=== PATIENT | male | born 1950 | race Caucasian/White ===

== ENCOUNTER 2024-03-03 09:35 | Outpatient (AMB) | payer MEDICARE, BC, SELFPAY ==
--- NOTE | 2024-03-03 10:14 | HO.SPINEOV ---
Intake Intake Visit Reasons: back pain Intake Note: Mr. Little is here today c/o back pain that radiates to both legs. Non Destructive Evaluation Specialist Required: No Assessment & Plan Assessment & Plan (1) Femoral neuropathy of right lower extremity: Code(s): G57.21 - Lesion of femoral nerve, right lower limb Plan Dear dear colleague Thank you for referring Carson Little to the office today with a chief complaint of right leg discomfort and numbness. HPI: This 73-year-old male developed acute severe pain in his right thigh and rudolph in March 2023 that lasted for several days. In May of 2023 the symptoms returned and he had to be transferred to the emergency room. Currently, the pain has mostly subsided but he has residual numbness in his rudolph. He also noted that he put more weight on his left leg nowadays. Cortisone injections provided no relief PMH: Hypertension, hypercholesterolemia, COPD, depression Medications: Atorvastatin, atenolol, Percocet, Advair, Cymbalta, meclizine Allergies: NKDA Social history: . Nonsmoker Physical Exam: Pleasant male patient on inspection there is mild atrophy of the quadriceps on the right side. There is decreased sensation of his right rudolph. Straight leg raise is negative. No motor weakness. Absent reflexes. Radiological Studies: MRI done at [facility] on 12/29/2023 shows no nerve compression or central stenosis. Impression/Plan: This patient developed an acute neuropathy with residual numbness. Differential diagnosis is an acute femoral nerve neuropathy or L4 radiculopathy. The MRI shows no nerve compression. Therefore there is no role for surgery. I would like to refer for an EMG to confirm the diagnosis. He will call for the results. Thank you for allowing me to participate in your patients care. total time spent was 45 minutes in counseling ,coordination of plan, personal review of imaging, and subsequent plan Aris Lynn MD, PhD Spine Fellowship Trained Neurosurgeon Director, [facility] Orders: Orders NE nerve conduction velocity Today G57.21 - Lesion of femoral nerve, right lower limb Coding Level of Care Code New Pt Level 4 (03274) Diagnoses Femoral neuropathy of right lower extremity G57.21
== END 2024-03-03 11:41 | disposition home or self-care (01) ==
PROVIDERS: PCP Internal Medicine; Visit Provider Neurological Surgery
DX: G57.21 Lesion of femoral nerve, right lower limb (principal)
CPT/HCPCS: 99204

== ENCOUNTER → 2024-03-03 09:35 | Outpatient (BNVA) | payer MEDICARE, BC, SELFPAY | PROVIDERS: PCP Internal Medicine; Visit Provider Neurological Surgery | DX: G57.21 Lesion of femoral nerve, right lower limb (principal) | CPT/HCPCS: 99202 ==

== ENCOUNTER 2024-03-10 14:34 | Outpatient (REF) | payer MEDICARE, BC, SELFPAY ==
--- NOTE | 2024-03-10 14:40 | EMG_ITS ---
Chief complaint: Right leg pain that started May 2023. Pain occurred with numbness. Patient describes severe numbness from right knee all the way to dorsal foot. Milder numbness on right thigh. He has had injections done by Dr. Solis. MRI has been done but not available for my review. Reason for referral: Evaluate for femoral neuropathy versus lumbar radiculopathy Referred by: Dr. Lynn Procedure done: Right lower extremity NCS/EMG Precautions and/or limitations: None The limb temperature was monitored continuously and remained between 32-36 degrees C during the performance of the NCS. Nerve Conduction Studies Anti Sensory Summary Table ?Stim Site NR Onset (ms) Norm Onset (ms) Peak (ms) Norm Peak (ms) O-P Amp (?V) Norm O-P Amp Site1 Site2 Delta-0 (ms) Dist (cm) Nehemiah (m/s) Norm Nehemiah (m/s) Right Saphenous Anti Sensory (Ant Med Mall) 14cm ? 0.9 1.7 <4.4 2.3 >2 14cm Ant Med Mall 0.9 0.0 Right Sural Anti Sensory (Lat Mall) Calf ? 0.9 1.9 <4.0 10.8 >5.0 Calf Lat Mall 0.9 14.0 156 Motor Summary Table ?Stim Site NR Onset (ms) Norm Onset (ms) O-P Amp (mV) Norm O-P Amp iAmp (mV) Amp (1st) (%) Site1 Site2 Delta-0 (ms) Dist (cm) Nehemiah (m/s) Norm Nehemiah (m/s) Right Peroneal Motor (Ext Dig Brev) Ankle ? 4.7 <4.0 2.3 >2.5 2.8 100.0 Ankle Ext Dig Brev 4.7 0.0 B Fib ? 12.9 2.2 3.0 95.7 B Fib Ankle 8.2 34.0 41 >40 Poplt ? 13.6 2.2 2.8 95.7 Poplt B Fib 0.7 7.0 100 >40 Right Tibial Motor (Abd Wood Brev) Ankle ? 5.3 <5 7.4 >2.5 9.4 100.0 Ankle Abd Wood Brev 5.3 0.0 Knee ? 17.0 4.7 6.0 63.5 Knee Ankle 11.7 44.0 38 >40 Right femoral nerve tested/attempted, technically difficult to obtain. EMG ?Side Muscle Nerve Root Ins Act Fibs Psw Amp Dur Poly Recrt Int Pat Comment Right AbdHallucis MedPlantar S1-2 Nml Nml Nml Nml Nml 0 Nml Complete Right AntTibialis Dp Br Peron L4-5 Nml Nml Nml Nml Nml 0 Nml Complete Right PostTibialis Tibial L5, S1 Nml Nml Nml Nml Nml 0 Nml Complete Right MedGastroc Tibial S1-2 Nml Nml Nml Nml Nml 0 Nml Complete Right VastusMed Femoral L2-4 Nml Nml Nml Nml Nml 0 Nml Complete Right VastusLat Femoral L2-4 Nml Nml Nml Nml Nml 0 Nml Complete Right RectFemoris Femoral L2-4 Nml Nml Nml Nml Nml 0 Nml Complete Right Add Rd Obturator, Sciat L2-4 Nml Nml Nml Nml Nml 0 Nml Complete Paraspinal EMG ?Side Muscle Nerve Root Ins Act Fibs Psw Comment Right Lumbar Upper Rami Nml Nml Nml Right Lumbar Mid Rami Nml Nml Nml Right Lumbar Lower Rami Nml Nml Nml FINDINGS: Right peroneal nerve showed prolonged distal latency, small amplitude and normal conduction velocity. Right tibial nerve showed prolonged distal latency, normal amplitude and slow conduction velocity. All other nerves tested, including right saphenous and sural nerves, were within normal. Note that right femoral motor nerve is difficult technically. An absent response does not indicate abnormality. Note that the right saphenous was within normal. And no denervation seen on needle EMG of muscles innervated by femoral nerve. Concentric needle EMG was performed in selected muscles of the right lower extremity and lumbar paraspinals. Study did not reveal signs of electric abnormalities as shown in the table below. IMPRESSION: 1. This is an abnormal study. 2. There are electrodiagnostic findings suggestive of right L5/S1 radiculopathy 3. There is no electrodiagnostic evidence for femoral neuropathy, sciatic neuropathy or lumbar plexopathy, given normal saphenous and sural SNAPS. 4. Also given normal sural SNAP, no evidence for distal/peripheral neuropathy seen. Thank you for your kind referral. Miladys Donovan MD, SHAWN Board Certified, [place] Board [employer] and [employer] (ABPMR) Board Certified, [place] Board [employer] Electro[employer] (ABEM) CODIN [id number] SARAH
== END 2024-03-10 14:35 | disposition home or self-care (01) ==
LOC: HO.NEURO 14:34
PROVIDERS: PCP Internal Medicine; Visit Provider Neurological Surgery
DX: G57.21 Lesion of femoral nerve, right lower limb (principal)
CPT/HCPCS: 95886; 95910

== ENCOUNTER → 2024-03-10 14:40 | Outpatient (BNV) | payer MEDICARE, BC, SELFPAY | PROVIDERS: PCP Internal Medicine; Visit Provider Physical Medicine & Rehabilitation | DX: M54.16 Radiculopathy, lumbar region (principal) | CPT/HCPCS: 95886; 95908 ==

== ENCOUNTER 2025-06-30 09:15 | Outpatient (AMB) | payer MEDICARE, BC, SELFPAY ==
--- NOTE | 2025-06-30 09:16 | A.OFFVIS_ITS ---
Vital Signs 06/30/25 09:18 Weight 172 lb BP 130/60 Blood Pressure Location Rt brachial Position Sitting Pulse 53 Pulse Source Pulse Oximeter Pulse Oximetry (%) 97 Oxygen Delivery Method Room Air Intake Visit Reasons: E-POST DOCTORAL RESEARCHER: Tremors Intake Note: NPV referred by PCP Kathy Prado for Tremors Hedis Review Nurse Required: No Accompanied by: Self / Same As Patient Allergies No Known Allergies Allergy (Verified 06/30/25 09:19) Medication List - Last Reconciled 06/30/25 by Bhakti Freeman MD albuterol sulfate 90 mcg/actuation (Ventolin HFA) 2 puffs inhalation Q4-6H PRN atenolol 25 mg PO DAILY atorvastatin (Lipitor) 40 mg PO DAILY dicyclomine 10 mg PO BID duloxetine 30 mg PO DAILY fluticasone propion-salmeterol 250-50 mcg/dose 1 inh inhalation BID gabapentin 300 mg PO BEDTIME ipratropium-albuterol 20-100 mcg/actuation 1 puff inhalation QID meclizine 25 mg PO TID nicotine 1 patch transdermal Q24H oxycodone-acetaminophen 5-325 mg (Percocet) 1 tab PO TID PRN propranolol 10 mg PO BID PRN timolol 0.5% 1 drp ophthalmic (eye) BID zolpidem 10 mg PO BEDTIME HPI Comments Details: 74y/o Right handed male comes for evaluation of tremors. He started noticing it 3 years ago and the tremors are more in his Right hand with action. He has trouble writing, dressing, shaving, holding a coffee cup, typing ,eating ,drinking and it is worse in the later part of day. No fh/o tremors No head injury He has vertigo and has been taking meclizine No head or voice or LE tremors. [facility] Medical History Tendinopathy of left rotator cuff Prediabetes IBS (irritable bowel syndrome) Insomnia Hypertension Hyperlipemia Erectile dysfunction Dyspnea Calcific tendinitis of left shoulder Aortic stenosis Anxiety Allergic rhinitis Physical Exam Vital Signs: Last Vital Signs Pulse 53 06/30/25 09:18 BP 130/60 06/30/25 09:18 Pulse Ox 97 06/30/25 09:18 Oxygen Delivery Method Room Air 06/30/25 09:18 Const Orientation/consciousness: patient oriented x3 Eyes Pupils: Equal, round and reactive pupils present Neuro Other: Right UE postural and action tremors Cog wheel rigidity 1 + right hand Left UE - mild tremors FFM and foot taps mild decreased peyman Gait- does not swing his right UE General: patient oriented x3 and moves all extremities Cranial nerves: Yes Facial sensation intact/muscles of mastication intact, Yes Equal, round and reactive pupils present, Yes Bilaterally intact EOM present, Yes Nystagmus not present, Yes Normal facial strength present, Yes Midline tongue present, Yes Symmetric palate elevation present and Yes Ability to bilaterally elevate shoulders present Cognition (Neuro): normal cognition Motor exam (neuro): 5/5 motor strength present throughout Deep tendon reflexes (DTR's): Right triceps reflex intensity grade: 1+, Left triceps reflex intensity grade: 1+, Rt Biceps (C5, C6): 1+, Left biceps reflex intensity grade: 1+, Right brachioradialis reflex intensity grade: 1+, Left brachioradialis reflex intensity grade: 1+, Right patellar reflex intensity grade: 0 and Left patellar reflex intensity grade: 1+ Coordination: [id number] test normal Assessment & Plan Assessment & Plan (1) Coarse tremors: Comment: senile tremors- has some parkinsonian fetaures - cogwheel rigidity and decreased arm swing Code(s): G25.2 - Other specified forms of tremor Category: Medical Plan Will monitor for parkinsons I will trial him on gabapentin 300mg qhs - for tremors , sleep . Taper zolpidem Propranalol 10mg bid as needed MRI brain Orders: Orders MR head/brain wo con Today G25.2 - Other specified forms of tremor Medications: New gabapentin 300 mg PO BEDTIME 30 caps 6RF propranolol 10 mg PO BID PRN 60 tabs 3RF tremors Coding Level of Care Code New Pt Level 4 (15370) Diagnoses Coarse tremors G25.2 BFADL Questionnaire: Cut food with a knife and fork: 3 - Able to do activity with a lot of effort, Use a spoon to drink soup: 3 - Able to do activity with a lot of effort, Hold a cup of tea: 3 - Able to do activity with a lot of effort, Pour milk from a bottle or carton: 3 - Able to do activity with a lot of effort, Wash and dry dishes: 3 - Able to do activity with a lot of effort, [place] your teeth: 2 - Able to do activity with a little effort, Use a handkerchief to blow your nose: 2 - Able to do activity with a little effort, Use a bath: 2 - Able to do activity with a little effort, Use the lavoratory: 3 - Able to do activity with a lot of effort, Wash your face and hands: 3 - Able to do activity with a lot of effort, Tie your shoelaces: 2 - Able to do activity with a little effort, Do up buttons: 2 - Able to do activity with a little effort, Do up a zip: 2 - Able to do activity with a little effort, Write a letter: 4 - Cannot do the activity by yourself, Put a letter in an envelope: 3 - Able to do activity with a lot of effort, Hold and read a newspaper: 3 - Able to do activity with a lot of effort, Dial a telephone: 3 - Able to do activity with a lot of effort, Make yourself understood on a telephone: 1 - Able to do activity without difficulty, Watch television: 1 - Able to do activity without difficulty, set up operator tool your change in a shop: 1 - Able to do activity without difficulty, Inset an electrical plug into a socket: 2 - Able to do activity with a little effort, Unlock your front door with a oropeza: 2 - Able to do activity with a little effort, Walk up and down stairs: 4 - Cannot do the activity by yourself, Get up out of an armchair: 3 - Able to do activity with a lot of effort and Carry a full shopping ba - Able to do activity with a little effort
[2025-06-30 09:18] VITALS: BP 130/60; PULSE 53; O2SAT 97
--- OUTSIDE RECORDS SUMMARY | 2025-06-30 09:32 | XMS_ITS | Clinical Summary ---
Author Organization [facility] [place] Address [address] [place] [address] Care Team Providers Care Lab Manager Name Role Phone Kathy Prado MD Primary Care Provider [phone] Allergies No known active allergies Medications timolol (TIMOPTIC) 0.5 % ophthalmic solution Administer 1 drop into both eyes 2 (two) times a day. 09/10/20 23 Active nicotine (NICODERM CQ) 14 mg/[address] 1 patch on the skin 1 (one) time each day at the same time. 10/13/20 23 Active fluticasone-sa lmeterol (ADVAIR DISKUS) 250-50 mcg/dose diskus inhaler Inhale 1 puff by mouth 2 (two) times a day. wixela 08/19/20 23 Active fluticasone-sa lmeterol (ADVAIR DISKUS) 250-50 mcg/dose diskus inhaler Inhale 1 puff by mouth 2 (two) times a day. 08/19/20 22 Active ipratropium-al buteroL (Combivent Respimat) 20-100 mcg/actuation inhaler Inhale 1 puff by mouth 4 (four) times a day. 3 g 4 10/15/20 24 025 Active nicotine (NICODERM CQ) 14 mg/24 hrIndications: Tobacco dependency 14 mg x 8 weeks, 7 mg x 4 weeks 60 patch 1 10/15/20 24 Active atenoloL (TENORMIN) 25 mg tablet TAKE 1 AND 1/2 TABLETS BY MOUTH EVERY DAY 135 tablet 1 01/06/20 25 Active meclizine (ANTIVERT) 25 mg tablet TAKE 1 TABLET BY MOUTH TWICE A DAY 60 tablet 1 05/11/20 25 Active oxyCODONE-acet aminophen (PERCOCET) 5-325 mg per tabletIndicati ons:Calcific tendinitis of left shoulder Take 1 tablet by mouth every 6 (six) hours if needed for severe pain. Take 1 Tablet by mouth every 6 hours as needed for Pain for up to 28 days. - Oral Max Daily Amount: 4 tablets 112 tablet 06/06/20 25 Active oxyCODONE-acet aminophen (PERCOCET) 5-325 mg per tabletIndicati ons:Calcific tendinitis of left shoulder Take 1 tablet by mouth every 6 (six) hours if needed for severe pain. Take 1 Tablet by mouth every 6 hours as needed for Pain for up to 28 days. - Oral Max Daily Amount: 4 tablets 112 tablet 06/06/20 25 Active DULoxetine (CYMBALTA) [address] capsule TAKE 1 CAPSULE BY MOUTH EVERY DAY 90 capsule 06/13/20 25 Active dicyclomine (BENTYL) 10 mg capsule TAKE 1 CAPSULE BY MOUTH TWICE A DAY 180 capsule 06/13/20 25 Active atorvastatin (LIPITOR) 40 mg tablet TAKE 1 TABLET BY MOUTH EVERY DAY 90 tablet 06/23/20 25 Active albuterol HFA (PROAIR HFA ; PROVENTIL HFA ; VENTOLIN HFA) 90 mcg/actuation inhalerIndicat ions:Dizziness and giddiness,Shor tness of breath INHALE 2 PUFFS BY MOUTH EVERY 4 (FOUR) HOURS IF NEEDED FOR WHEEZING. 18 each 06/27/20 25 026 Active zolpidem (AMBIEN) 10 mg tablet Take 1 tablet (10 mg total) by mouth at bedtime as needed for sleep. Max Daily Amount: 10 mg 30 tablet 06/28/20 25 Active zolpidem (AMBIEN) 10 mg tablet Take 1 tablet (10 mg total) by mouth at bedtime as needed for sleep. Max Daily Amount: 10 mg 30 tablet 06/28/20 25 Active dicyclomine (BENTYL) 10 mg capsule TAKE 1 CAPSULE BY MOUTH TWICE A DAY 180 capsule 12/22/19 25 025 Discontinued DULoxetine (CYMBALTA) [address] capsule TAKE 1 CAPSULE BY MOUTH EVERY DAY 90 capsule 1 12/22/19 25 025 Discontinued atorvastatin (LIPITOR) 40 mg tablet TAKE 1 TABLET BY MOUTH EVERY DAY 90 tablet 1 12/27/19 25 025 Discontinued albuterol HFA (PROAIR HFA ; PROVENTIL HFA ; VENTOLIN HFA) 90 mcg/actuation inhalerIndicat ions:Dizziness and giddiness,Shor tness of breath Inhale 2 puffs by mouth every 4 (four) hours if needed for wheezing. 1 each 3 12/27/19 025 Discontinued zolpidem (AMBIEN) 10 mg tablet Take 1 tablet (10 mg total) by mouth at bedtime as needed for sleep. Max Daily Amount: 10 mg 30 tablet 3 03/08/20 025 Discontinued(Re order) oxyCODONE-acet aminophen (PERCOCET) 5-325 mg per tabletIndicati ons:Calcific tendinitis of left shoulder Take 1 tablet by mouth every 6 (six) hours if needed for severe pain. Take 1 Tablet by mouth every 6 hours as needed for Pain for up to 28 days. - Oral Max Daily Amount: 4 tablets 112 tablet 05/10/20 025 Discontinued(Re order) Hospital, Clinic, or Other Facility Administered Medication Ordered Dose Route Frequency Start Date End Date Status nicotine (NICODERM CQ) 14 mg/24 hr patch 1 patchIndications:Tobacco abuse 1 patch TD Daily 10/15/2024 Active Active Problems Problem Noted Date Diagnosed Date Aortic stenosis 10/21/2022 Anxiety 02/19/2022 Dyspnea 02/19/2022 Calcific tendinitis of left shoulder 04/18/2020 Tendinopathy of left rotator cuff 04/18/2020 Hypertension 01/15/2019 Assessment & Plan (11/09/2024 1:28 PM EST): Orders: Hemoglobin A1c; Future Lipid panel with reflex to direct LDL; Future Hyperlipidemia 06/09/2018 Assessment & Plan (11/09/2024 1:28 PM EST): Orders: Hemoglobin A1c; Future Lipid panel with reflex to direct LDL; Future Insomnia 01/14/2018 Prediabetes 11/22/2016 Assessment & Plan (11/09/2024 1:28 PM EST): Orders: Hemoglobin A1c; Future Lipid panel with reflex to direct LDL; Future ED (erectile dysfunction) 11/21/2015 Allergic rhinitis 07/21/2014 Irritable bowel syndrome 02/01/2014 Encounters Date Type Department Care Team Description 05/10/2025 1:15 PM EDT Office Visit Internal Medicine [facility] [address] [facility] [address] [place] [phone] Kathy Prado MD Primary hypertension (Primary Dx); Mixed hyperlipidemia; Prediabetes; Bruising; Screening for colorectal cancer 05/09/2025 Telephone Internal Medicine [facility] [address] [facility] [address] [place] [address] Angel Herrera MA Appointment Reminder 04/15/2025 2:30 PM EDT Office Visit Pulmonolgy [facility] [address] [facility] [address] [place] [phone] Nichole Gutierrez MD Chronic obstructive pulmonary disease, unspecified COPD type (CMS/HCC V24, CMS/HCC V28) (Primary Dx) from Last 3 Months Immunizations Name Administration Dates Next Due Influenza Quadravalent, 0.5ml (Fluad) 65yo and o lder 09/26/2023,09/23/2022 Influenza trivalent, 0.5mL ( Fluzone High-dose) 65yo and older 09/12/2024,09/12/2019 Influenza trivalent, with pr eservative (Fluzone; Afluria) 6mo and older 09/21/2020 Moderna (age 6mo & older) Bi valent, COVID-19, 0.5 mL or 0.25 mL dosage 11/28/2022 Moderna SARS-CoV-2 COVID-19, mRNA, LNP-S, preservative free 11/28/2022 Pneumococcal conjugate 13 va lent (Prevnar 13, PCV13) 2mo and older 08/21/2016 Pneumococcal polysaccharide 23 valent (Pneumovax 23) 2yo and older 10/31/2017 Tdap Tetanus diptheria acell ular pertussis (Boostrix; Adacel) 7yo and older 05/09/2025,06/14/2014 Surgical History Surgery Date Site/Laterality Comments HERNIA REPAIR Left PROCEDURE: REPAIR INGUINAL HERNIA Medical History Medical History Date Comments Allergic rhinitis 07/21/2014 DX:Allergic rh initis ED (erectile dysfunction) 11/21/2015 DX:ED (erectile dysfunction) Hyperlipidemia 06/09/2018 DX:Hyperlipidemi a Insomnia 01/14/2018 DX:Insomnia Irritable bowel syndrome 02/01/2014 DX:Irri table bowel syndrome Prediabetes 11/22/2016 DX:Prediabetes Hypertension 01/15/2019 DX:Hypertension Social History Tobacco Use Types Packs/Day Years Used Date Smoking Tobacco: Every Day Smokeless Tobacco: Never Alcohol Use Standard Drinks/Week Comments No 0 (1 standard drink = 0.6 oz pur e alcohol) Housing Instability Answer Date Recorde d Are you worried that in the next 2 months you may not have stable housing? No 11/02/2024 Food Access & Nutrition Answer Date Rec orded Do you have access to a vari ety of food including fruits and vegetables? Yes 11/02/2024 Access to Healthcare Answer Date Record ed Within the last 3 months, ho w many times did you visit the emergency department for your medical care? 0 11/02/2024 Health Literacy Answer Date Recorded How often do you need to hav e someone help you when you read instructions, pamphlets, or other written material from your doctor or pharmacy? Rarely 11/02/2024 Caregiver: How often do you need to have someone help you when you read instructions, pamphlets, or other written material from your doctor or pharmacy? Not on file 11/02/2024 Financial Risk Answer Date Recorded How hard is it for you to pa y for the very basics like food, housing, medical care, and air conditioning / heating? Not very hard 11/02/2024 Transportation Answer Date Recorded Has the lack of transportati on kept you from meetings, work, or from getting things needed for daily living? No Has the lack of transportati on kept you from medical appointments or from getting medications? No 11/02/2024 Social Isolation Answer Date Recorded How often do you feel lonely or isolated from th ose around you? Never 11/02/2024 Food Risk Answer Date Recorded Within the past 12 months we worried whether our food would run out before we got money to buy more. Never true 11/02/2024 Within the past 12 months th e food we bought just didn't last and we didn't have money to get more. Never true 11/02/2024 Dependent Care Answer Date Recorded Do you need help finding or paying for care for your loved ones. For example, child welfare counselor or elderly care for an older adult? No 11/02/2024 Education Answer Date Recorded Do you think completing more education or training, like finishing a GED, going to college, or learning a trade, would be helpful for you? No 11/02/2024 Employment and Income Answer Date Recor ded During the last four weeks, have you been actively looking for work? No 11/02/2024 Living Situation Answer Date Recorded What is your living situation? 1 01/03/2024 Sex and Gender Information Value Date Recorded Sex Assigned at Male 02/10/2025 5:56 PM EDT Legal Sex Male 11:52 AM EDT Gender Identity Male 02/10/2025 5:56 PM EDT Sexual Orientation Straight 02/10/2025 5: 56 PM EDT Obstetrics History Last Filed Vital Signs Vital Sign Reading Time Taken Comments Blood Pressure 126/72 05/10/2025 1:10 PM EDT Pulse 93 05/10/2025 1:10 PM EDT Temperature 36.3 C (97.3 F) 05/10/2025 1:10 PM EDT Respiratory Rate 14 04/15/2025 2:26 PM EDT Oxygen Saturation 95% 05/10/2025 1:10 PM EDT Inhaled Oxygen Concentration - - Weight 77.4 kg (170 lb 9.6 oz) 05/10/2025 1:10 P M EDT Height 177.8 cm (5' 10 ) 04/15/2025 2:26 PM EDT Body Mass Index 24.48 04/15/2025 2:26 PM EDT Plan of Treatment Upcoming Encounters Date Type Department Care Team (Late st Contact Info) Description 10/12/2025 1:15 PM EST Office Visit Internal Medicine - [place] [address] [facility] [address] [place] [address] Kathy Prado MD [address] [facility] [address] [place] [address] 10/17/2025 2:15 PM EST Office Visit Pulmonolgy - [place] [address] [facility] [address] [place] [phone] Nichole Gutierrez MD [address] [facility] [address] [place] [address] Health Maintenance Due Date Last Done Comments Zoster Vaccines (1 of 2) 2001 RSV Immunization Adult Patients (1 - Risk 60-74 years 1-dose series) 2011 Abdominal Aortic Aneurysm (AAA) Screen 03/16/2021 Hepatitis C Screening 03/16/2021 COVID-19 Vaccine ( season) 2024 11/14/2023, 11/28/2022, 11/28/2022, Additional history exists Influenza Vaccine (#1) 2025 , 09/26/2023, 09/23/2022, Additional history exists Social Influencers of Health Screening 11/02/2025 11/02/2024 Falls Risk Assessment 11/09/2025 11/09/2024 , 11/07/2023, 11/07/2023 Medicare Annual Wellness Visit 11/09/2025 11/09/2024 Hypertension/CHF/CAD Annual BMP Blood Test 05/10/2026 05/10/2025, 11/03/2024, 11/13/2023 Colorectal Cancer Screening: FIT-DNA (Cologuard) 06/15/2028 06/15/2025, 01/21/2022, 01/21/2022 Cholesterol Screening (Lipid Panel) 11/09/2029 11/09/2024, 11/13/2023, 11/13/2023 DTaP,Tdap,and Td Vaccines (3 - Td or Tdap) 05/09/2035 05/09/2025, 06/14/2014 Pneumococcal Vaccine: 50+ Years Completed 10/31/2017, 08/21/2016 Depression Screening Completed 05/04/2025, 11/07/20 23 HIB Vaccines Aged Out No longer eligi ble based on patient's age to complete this topic HPV Vaccines Aged Out No longer eligi ble based on patient's age to complete this topic Hepatitis A Vaccines Aged Out No long er eligible based on patient's age to complete this topic Hepatitis B Vaccines Aged Out No long er eligible based on patient's age to complete this topic IPV Vaccines Aged Out No longer eligi ble based on patient's age to complete this topic MMR Vaccines Aged Out No longer eligi ble based on patient's age to complete this topic Meningococcal ACWY Vaccine Aged Out N o longer eligible based on patient's age to complete this topic Meningococcal B Vaccine Aged Out No l onger eligible based on patient's age to complete this topic RSV Immunization Patients Under 20 months Aged Out No longer eligible based on patient's age to complete this topic Varicella Vaccines Aged Out No longer eligible based on patient's age to complete this topic Goals Goal Patient Goal Type Associated Problems Recent Progress Patient-Stated? Author PT LTGs General No Jin Reynoso, PT Note: Pt will report no dizziness/vertigo x1 week with full daily activity - met Pt will be independent with HEP - met Procedures Procedure Name Priority Date/Time Associated Diagnosis Comments LAB COLOGUARD COLON CANCER SCREEN Routine 06/15/2025 2:00 PM EDT Screening for colorectal cancer CBC WITH AUTO DIFFERENTIAL Routine 05/10/2025 1:50 PM EDT Primary hypertension Mixed hyperlipidemia Prediabetes [place] PROTHROMBIN TIME WITH INR Routine 05/10/2025 1:50 PM EDT Primary hypertension Mixed hyperlipidemia Prediabetes Bruising CBC AND DIFFERENTIAL Routine 05/10/2025 1:50 PM EDT Primary hypertension Mixed hyperlipidemia Prediabetes [place] HEMOGLOBIN A1C Routine 05/10/2025 1:50 PM EDT Primary hypertension Mixed hyperlipidemia Prediabetes [place] COMPREHENSIVE METABOLIC PANEL Routine 05/10/2025 1:50 PM EDT Primary hypertension Mixed hyperlipidemia Prediabetes [place] LIPID PANEL WITH REFLEX TO DIRECT LDL Routine 11/09/2024 1:28 PM EST Primary hypertension Mixed hyperlipidemia Prediabetes DEPRESSION SCREENING Routine 11/07/2023 FALLS RISK ASSESSMENT Routine 11/07/2023 from Last 3 Months or Most Recently Relevant to Health Maintenance Results * Cologuard?? colon cancer screening (06/15/2025 2:00 PM EDT) COLOGUARD Negative Negative [facility] Comment: The Cologuard Plus (TM) test was performed on this specimen. NEGATIVE TEST RESULT. A negative (normal) Cologuard Plus result means the patient has a [id number] chance of having colorectal cancer (CRC) or advanced precancer (polyps or lesions that could become cancer). Negative is the normal value (reference range) for this assay. Guidelines recommend screening again 3 years after a negative Cologuard Plus result. Continued screening increases the chance of finding CRC early or preventing it entirely. A clinical validation study showed the Cologuard Plus test is effective at ruling out CRC. Out of every 10,000 patients testing negative, approximately 2 will be falsely reassured that they do not have CRC, and out of every 100 patients testing negative, approximately 7 patients will be falsely reassured they do not have advanced precancer. TEST DESCRIPTION: The Cologuard Plus test is a multi-target stool DNA (mt-sDNA) test that analyzes DNA and hemoglobin biomarkers in stool. It uses a proprietary algorithm to qualitatively detect CRC and advanced precancer. It is FDA-approved and indicated for use in adults 45 years or older at average risk for CRC. A positive (abnormal) result should be followed by a colonoscopy. Patients with a negative (normal) result should screen again in 3 years. False positive and false negative results may occur. The USPSTF recommends the Cologuard test as a CRC screening option. Their modeling estimates that screening with the test every 3 years from ages 45-85 could prevent up to 73% of CRC and avoid up to 85% of CRC deaths. A 18,911-patient clinical trial found the Cologuard Plus test effectively detects CRC and precancer. The study found the test was 95% sensitive for CRC, 43% sensitive for advanced precancer, and had a 91% specificity (Cologuard Plus Clinician Brochure. [employer]. [place], [place].). Visit www.cologuardPick1p.com/[email or web address] for more test information, references, warnings, and precautions. Stool 06/15/2025 2:00 PM EDT 06/16/2025 12:45 PM EDT Kathy Prado MD LAB MOLECULAR DIAGNOSTICS [facility] Final Result [employer] [address] [place] [address] [facility] [address] [place] [address] * (ABNORMAL) CBC auto differential (05/10/2025 1:50 PM EDT) WBC 5.7 4.8 - 10.8 K/mcL LAB HEMETOLOGY METHOD 05/10/2025 6:33 PM EDT [facility] RBC 3.80(L) 4.50 - 5.50 M/mcL LAB HEMETOLOGY METHOD 05/10/2025 6:33 PM EDT [facility] Hemoglobin 13.1(L) 13.5 - 17.5 g/dL LAB HEMETOLOGY METHOD 05/10/2025 6:33 PM EDT [facility] Hematocrit 39.5(L) 42.0 - 54.0 % LAB HEMETOLOGY METHOD 05/10/2025 6:33 PM EDT [facility] MCV 104.8(H) 79.0 - 98.0 FL LAB HEMETOLOGY METHOD 05/10/2025 6:33 PM EDT [facility] MCH 34.7(H) 27.0 - 32.0 pcg LAB HEMETOLOGY METHOD 05/10/2025 6:33 PM EDT [facility] MCHC 33.2 32.0 - 37.0 g/dL LAB HEMETOLOGY METHOD 05/10/2025 6:33 PM [facility] RDW 12.6 11.0 - 15.0 % LAB HEMETOLOGY METHOD 05/10/2025 6:33 PM [facility] Platelets 277 130 - 400 K/mcL LAB HEMETOLOGY METHOD 05/10/2025 6:33 PM [facility] MPV 9.5 7.0 - 11.0 FL LAB HEMETOLOGY METHOD 05/10/2025 6:33 PM [facility] NRBC 0.0 <1.0 % LAB HEMETOLOGY METHOD 05/10/2025 6:33 PM [facility] NRBC Absolute 0.00 <0.10 K/mcL LAB HEMETOLOGY METHOD 05/10/2025 6:33 PM [facility] Neutrophils Relative 51.8 % LAB HEMETOLOGY METHOD 05/10/2025 6:33 PM [facility] Lymphocytes Relative 30.4 % LAB HEMETOLOGY METHOD 05/10/2025 6:33 PM [facility] Monocytes Relative 14.3 % LAB HEMETOLOGY METHOD 05/10/2025 6:33 PM [facility] Eosinophils Relative 2.4 % LAB HEMETOLOGY METHOD 05/10/2025 6:33 PM [facility] Basophils Relative 0.9 % LAB HEMETOLOGY METHOD 05/10/2025 6:33 PM [facility] Immature Granulocytes Relative 0.2 % LAB HEMETOLOGY METHOD 05/10/2025 6:33 PM [facility] Neutrophils Absolute 2.96 1.50 - 7.00 K/mcL LAB HEMETOLOGY METHOD 05/10/2025 6:33 PM [facility] Lymphocytes Absolute 1.74 1.00 - 5.00 K/mcL LAB HEMETOLOGY METHOD 05/10/2025 6:33 PM EDT [facility] Monocytes Absolute 0.82 0.20 - 1.00 K/mcL LAB HEMETOLOGY METHOD 05/10/2025 6:33 PM EDT [facility] Eosinophils Absolute 0.14 0.00 - 0.50 K/mcL LAB HEMETOLOGY METHOD 05/10/2025 6:33 PM EDT [facility] Basophils Absolute 0.05 0.00 - 0.20 K/mcL LAB HEMETOLOGY METHOD 05/10/2025 6:33 PM EDT [facility] Immature Granulocytes Absolute 0.01 0.00 - 0.03 K/mcL LAB HEMETOLOGY METHOD 05/10/2025 6:33 PM EDT [facility] Blood Venous blood specimen / Unknown Venipuncture / Unknown 05/10/2025 1:50 PM EDT 05/10/2025 1:50 PM EDT us Kathy Prado MD LAB BLOOD ORDERABLES Final Res ult [facility] [address] [place] [address], [place] [phone] * Prothrombin time with INR (05/10/2025 1:50 PM EDT) Protime 10.7 10.6 - 13.9 sec LAB COAGULATION METHOD 05/10/2025 6:28 PM EDT [facility] INR 0.9 LAB COAGULATION METHOD 05/10/2025 6:28 PM EDT [facility] Blood Venous blood specimen / Unknown Venipuncture / Unknown 05/10/2025 1:50 PM EDT 05/10/2025 1:50 PM EDT us Kathy Prado MD LAB BLOOD ORDERABLES Final Res ult [facility] [address] [place] [address], [place] [phone] * (ABNORMAL) Hemoglobin A1c (05/10/2025 1:50 PM EDT) [facility] Hemoglobin A1C 6.7(H) <6.5 % LAB CHEMISTRY METHOD 05/10/2025 10:14 PM EDT [facility] Mean Bld Glu Estim. 146 mg/dL LAB CHEMISTRY METHOD 05/10/2025 10:14 PM EDT [facility] Blood Venous blood specimen / Unknown Venipuncture / Unknown 05/10/2025 1:50 PM EDT 05/10/2025 1:50 PM EDT Kathy Prado MD LAB BLOOD ORDERABLES Final Res ult [facility] [address] [place] [address], [place] [phone] * Comprehensive metabolic panel (05/10/2025 1:50 PM EDT) [facility] Sodium 137 133 - 145 mmol/L LAB CHEMISTRY METHOD 05/10/2025 7:51 PM [facility] Potassium 4.3 3.5 - 5.5 mmol/L LAB CHEMISTRY METHOD 05/10/2025 7:51 PM [facility] Chloride 105 96 - 110 mmol/L LAB CHEMISTRY METHOD 05/10/2025 7:51 PM T [facility] CO2 27 21 - 32 mmol/L LAB CHEMISTRY METHOD 05/10/2025 7:51 PM [facility] Anion Gap 5 3 - 11 LAB CHEMISTRY METHOD 05/10/2025 7:51 PM [facility] Glucose 92 70 - 100 mg/dL LAB CHEMISTRY METHOD 05/10/2025 7:51 PM [facility] BUN 9 5 - 25 mg/dL LAB CHEMISTRY METHOD 05/10/2025 7:51 PM [facility] Creatinine 1.01 0.70 - 1.30 mg/dL LAB CHEMISTRY METHOD 05/10/2025 7:51 PM [facility] eGFR 79 >=60 mL/min/1. 73m2 LAB CHEMISTRY METHOD 05/10/2025 7:51 PM [facility] Comment:Calculation based on the Chronic Kidney Disease Epidemiology Collaboration (CKD-EPI) equation refit without adjustment for race. BUN/Creatinine Ratio 8.9 LAB CHEMISTRY METHOD 05/10/2025 7:51 PM [facility] Calcium 8.9 8.5 - 10.5 mg/dL LAB CHEMISTRY METHOD 05/10/2025 7:51 PM [facility] AST (SGOT) 29 10 - 42 unit/L LAB CHEMISTRY METHOD 05/10/2025 7:51 PM [facility] ALT (SGPT) 30 10 - 60 unit/L LAB CHEMISTRY METHOD 05/10/2025 7:51 PM [facility] Alkaline Phosphatase 79 42 - 121 unit/L LAB CHEMISTRY METHOD 05/10/2025 7:51 PM [facility] Total Protein 7.1 6.0 - 8.0 g/dL LAB CHEMISTRY METHOD 05/10/2025 7:51 PM [facility] Albumin 3.9 3.2 - 5.0 g/dL LAB CHEMISTRY METHOD 05/10/2025 7:51 PM [facility] Total Bilirubin 0.4 0.0 - 1.4 mg/dL LAB CHEMISTRY METHOD 05/10/2025 7:51 PM [facility] Blood Venous blood specimen / Unknown Venipuncture / Unknown 05/10/2025 1:50 PM EDT 05/10/2025 1:50 PM EDT us Kathy Prado MD LAB BLOOD ORDERABLES Final Res ult [facility] [address] [place] [address], [place] [phone] * Lipid panel with reflex to direct LDL (11/09/2024 1:28 PM EST) Cholesterol 194 0 - 200 mg/dL LAB CHEMISTRY METHOD 11/09/2024 7:44 PM EST [facility] Triglycerides 89 0 - 150 mg/dL LAB CHEMISTRY METHOD 11/09/2024 7:44 PM EST [facility] HDL 78 >=40 mg/dL LAB CHEMISTRY METHOD 11/09/2024 7:44 PM EST [facility] LDL Calculated 98 0 - 100 mg/dL LAB CHEMISTRY METHOD 11/09/2024 7:44 PM EST [facility] VLDL Cholesterol Markus 17.8 mg/dL LAB CHEMISTRY METHOD 11/09/2024 7:44 PM EST [facility] Non HDL Chol. (LDL+VLDL) 116 <145 mg/dL LAB CHEMISTRY METHOD 11/09/2024 7:44 PM EST [facility] Chol/HDL Ratio 2.5 0.0 - 4.4 LAB CHEMISTRY METHOD 11/09/2024 7:44 PM EST [facility] Blood Venous blood specimen / Unknown Venipuncture / Unknown 11/09/2024 1:28 PM EST 11/09/2024 1:28 PM EST us Kathy Prado MD LAB BLOOD ORDERABLES Final Res ult [facility] [address] [place] [address], [place] [phone] * Falls Risk Assessment (11/07/2023) Falls Risk Assessment abstracted us Historical Provider HEALTH MAINTENANCE Final Result * Depression Screening (11/07/2023) Pathologist [facility] Depression Screening abstracted us Historical Provider HEALTH MAINTENANCE Final Result from Last 3 Months or Most Recently Relevant to Health Maintenance Insurance MEDICARE [facility] Care Teams Lab Manager Relationship Specialty Start Date End Date Kathy Prado MD [address] [place] [address] [address] [place] [phone] PCP - General Internal Medicine 10/17/18
--- OUTSIDE RECORDS SUMMARY | 2025-06-30 09:32 | XMS_ITS ---
Author Name [facility] Organization Unknown Care Team Organization Name Specialty Phone Email Start Date End Da te [facility] LUCHO QUEZADA Primary Care 08/07/2023 07/19/20 [facility] Kathy Prado Primary Care 05/09/2023 07/19/20 24
== END 2025-06-30 10:03 | disposition home or self-care (01) ==
LOC: HO.HSMS 09:15
PROVIDERS: PCP Internal Medicine; Visit Provider Psychiatry & Neurology Neurology
DX: G25.2 Other specified forms of tremor (principal)
CPT/HCPCS: 99204

== ENCOUNTER → 2025-06-30 09:15 | Outpatient (BNVA) | payer MEDICARE, BC, SELFPAY | PROVIDERS: PCP Internal Medicine; Visit Provider Psychiatry & Neurology Neurology | DX: G25.2 Other specified forms of tremor (principal); Z79.899 Other long term (current) drug therapy | CPT/HCPCS: 99202 ==

== ENCOUNTER 2025-11-04 07:19 | Outpatient (AMB) | payer MEDICARE, BC, SELFPAY ==
--- OUTSIDE RECORDS SUMMARY | 2025-11-04 07:22 | XMS_ITS | Encounter Summary ---
Author Organization [facility] Address [address] [place] [address] Care Team Providers Care Assistant Manager Pt Name Role Phone Kathy Prado MD Primary Care Provider [phone] Reason for Visit * Reason Onset Date Comments Prior auth(lidocaine) 10/12/2025 Encounter Details Date Type Department Care Team (Late st Contact Info) Description 10/12/[address] [facility] [address] [place] [address] Kathy Prado MD [address] [place] [address] Social History Tobacco Use Types Packs/Day Years [...] ed Within the last 3 months, ho haley many times did you visit the emergency [...] for your loved ones. 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 [...] Date Recorded What is your living situation? Unrecognized valu e 11/02/2024 Sex and Gender Information Value Date Recorded Sex Assigned at Male 02/10/2025 5:56 PM EDT Legal Sex Male 11:52 AM EDT Gender Identity Male 02/10/2025 5:56 PM EDT Sexual Orientation Straight 02/10/2025 5: 56 PM EDT documented as of this encounter Progress Notes * Nabil Lam [place] - 10/13/2025 1:39 PM EST PA was denied * Raven Armstrong - 10/12/2025 2:45 PM EST [employer] called and stated that the lidocaine patches need a prior authorization. documented in this encounter Plan of Treatment Upcoming Encounters Date Type Department Care Team (Late st Contact Info) Description 11/07/2025 10:30 AM EST Office Visit Pulmonology - [place] [address] [phone] Nichole Gutierrez MD [address] [place] [phone] 02/13/2026 2:00 PM EDT Office Visit Internal Medicine - [place] [address] [phone] Kathy Prado MD [address] [place] [phone] documented as of this encounter Goals Goal Patient Goal Type Associated Problems Recent Progress Patient-Stated? Author PT LTGs General No Jin Reynoso, PT Note: Pt will report no dizziness/vertigo x1 week with full daily activity - met Pt will be independent with HEP - met documented as of this encounter Visit Diagnoses Not on filedocumented in this encounter Additional Health Concerns Assessment Noted Time PHQ-9 Depression Total Score: 0 10/12/20 25 1:28 PM EST documented as of this encounter Care Teams Assistant Manager Pt Relationship Specialty Start Date End Date Kathy Prado MD [address] [phone] PCP - General Internal Medicine 10/17/18 documented as of this encounter
--- OUTSIDE RECORDS SUMMARY | 2025-11-04 07:22 | XMS_ITS | Clinical Summary ---
Author Organization [facility] Address [address] [place] [address] Care Team Providers Care Folder Machine Adjuster Name Role Phone Kathy Prado MD Primary Care Provider [phone] Allergies No known active allergies Medications timolol (TIMOPTIC) 0.5 % ophthalmic solution Administer 1 drop into both eyes 2 (two) times a day. 09/10/20 23 Active fluticasone-salme terol (ADVAIR DISKUS) 250-50 mcg/dose diskus inhaler Inhale 1 puff by mouth 2 (two) times a day. wixela 08/19/20 23 Active fluticasone-salme terol (ADVAIR DISKUS) 250-50 mcg/dose diskus inhaler Inhale 1 puff by mouth 2 (two) times a day. 08/19/20 22 Active ipratropium-albut Amish (Combivent Respimat) 20-100 mcg/actuation inhaler Inhale 1 puff by mouth 4 (four) times a day. 3 g 4 10/15/20 24 Active nicotine (NICODERM CQ) 14 mg/24 hrIndications:Tob acco dependency 14 mg x 8 weeks, 7 mg x 4 weeks 60 patch 1 10/15/20 24 Active atenoloL (TENORMIN) 25 mg tablet TAKE 1 AND 1/2 TABLETS BY MOUTH EVERY DAY 135 tablet 1 01/06/20 25 Active DULoxetine (CYMBALTA) [address] capsule TAKE 1 CAPSULE BY MOUTH EVERY DAY 90 capsule 1 06/13/20 25 Active dicyclomine (BENTYL) 10 mg capsule TAKE 1 CAPSULE BY MOUTH TWICE A DAY 180 capsule 1 06/13/20 25 Active atorvastatin (LIPITOR) 40 mg tablet TAKE 1 TABLET BY MOUTH EVERY DAY 90 tablet 1 06/23/20 25 Active albuterol HFA (PROAIR HFA ; PROVENTIL HFA ; VENTOLIN HFA) 90 mcg/actuation inhalerIndication s:Dizziness and giddiness,Shortne ss of breath INHALE 2 PUFFS BY MOUTH EVERY 4 (FOUR) HOURS IF NEEDED FOR WHEEZING. 18 each 3 06/27/20 25 026 Active Wixela Inhub 250-50 mcg/dose diskus inhalerIndication s:Emphysema, unspecified (CMS/HCC V24, CMS/HCC V28) INHALE 1 PUFF INTO THE LUNGS 2 TIMES DAILY FOR 30 DAYS. 60 each 08/08/20 25 Active meclizine (ANTIVERT) 25 mg tablet TAKE 1 TABLET BY MOUTH TWICE A DAY 60 tablet 1 09/05/20 25 Active lidocaine (LIDODERM) 5 % patchIndications: Lumbar radiculopathy Apply 1 patch topically 1 (one) time each day. Apply to painful area 12 hours per day, remove for 12 hours. 30 each 10/12/20 25 026 Active oxyCODONE-acetami nophen (PERCOCET) 5-325 mg per tabletIndications :Calcific tendinitis of left shoulder,Lumbar radiculopathy Take 1 tablet by mouth 2 (two) times a day if needed for severe pain. Max Daily Amount: 2 tablets 14 tablet 10/12/20 25 Active oxyCODONE-acetami nophen (PERCOCET) 5-325 mg per tabletIndications :Calcific tendinitis of left shoulder Take 1 tablet by mouth every 6 (six) hours if needed for severe pain. Take 1 Tablet by mouth every 6 hours as needed for Pain for up to 28 days. - Oral Max Daily Amount: 4 tablets 112 tablet 10/18/20 25 Active zolpidem (AMBIEN) 10 mg tablet Take 1 tablet (10 mg total) by mouth at bedtime as needed for sleep. Max Daily Amount: 10 mg 30 tablet 3 10/31/20 25 Active nicotine (NICODERM CQ) 14 mg/[address] 1 patch on the skin 1 (one) time each day at the same time. 10/13/20 23 Discontin ued(Expir ed) zolpidem (AMBIEN) 10 mg tablet Take 1 tablet (10 mg total) by mouth at bedtime as needed for sleep. Max Daily Amount: 10 mg 30 tablet 3 06/28/20 25 025 Discontin ued(Reord er) zolpidem (AMBIEN) 10 mg tablet Take 1 tablet (10 mg total) by mouth at bedtime as needed for sleep. Max Daily Amount: 10 mg 30 tablet 3 06/28/20 25 025 Discontin ued(Expir ed) oxyCODONE-acetami nophen (PERCOCET) 5-325 mg per tabletIndications :Calcific tendinitis of left shoulder Take 1 tablet by mouth every 6 (six) hours if needed for severe pain. Take 1 Tablet by mouth every 6 hours as needed for Pain for up to 28 days. - Oral Max Daily Amount: 4 tablets 112 tablet 07/04/20 25 025 Discontin ued(Dupli nathalia order) oxyCODONE-acetami nophen (PERCOCET) 5-325 mg per tabletIndications :Calcific tendinitis of left shoulder Take 1 tablet by mouth every 6 (six) hours if needed for severe pain. Take 1 Tablet by mouth every 6 hours as needed for Pain for up to 28 days. - Oral Max Daily Amount: 4 tablets 112 tablet 09/19/20 25 025 Discontin ued(Reord er) oxyCODONE-acetami nophen (PERCOCET) 5-325 mg per tabletIndications :Calcific tendinitis of left shoulder,Lumbar radiculopathy Take 1 tablet by mouth 2 (two) times a day if needed for severe pain. Max Daily Amount: 2 tablets 14 tablet 10/12/20 25 025 Discontin ued(Reord er) Hospital, Clinic, or Other Facility Administered Medication Ordered Dose Route Frequency Start Date End Date Status nicotine (NICODERM CQ) 14 mg/24 hr patch 1 patchIndications:Tobacco abuse 1 patch TD Daily 10/15/2024 Active Active Problems Problem Noted Date Diagnosed Date Aortic stenosis 10/21/2022 Anxiety 02/19/2022 Dyspnea 02/19/2022 Calcific tendinitis of left shoulder 04/18/2020 Assessment & Plan (10/12/2025 7:09 PM EST): Orders: oxyCODONE-acetaminophen (PERCOCET) 5-325 mg per tablet; Take 1 tablet by mouth 2 (two) times a day if needed for severe pain. Max Daily Amount: 2 tablets Tendinopathy of left rotator cuff 04/18/2020 Hypertension 01/15/2019 Assessment & Plan (10/12/2025 7:09 PM EST): Assessment & Plan (11/09/2024 1:28 PM EST): Orders: Hemoglobin A1c; Future Lipid panel with reflex to direct LDL; Future Hyperlipidemia 06/09/2018 Assessment & Plan (10/12/2025 7:09 PM EST): Assessment & Plan (11/09/2024 1:28 PM EST): Orders: Hemoglobin A1c; Future Lipid panel with reflex to direct LDL; Future Insomnia 01/14/2018 Prediabetes 11/22/2016 Assessment & Plan (11/09/2024 1:28 PM EST): Orders: Hemoglobin A1c; Future Lipid panel with reflex to direct LDL; Future ED (erectile dysfunction) 11/21/2015 Allergic rhinitis 07/21/2014 Irritable bowel syndrome 02/01/2014 Encounters Date Type Department Care Team Description 10/12/2025 1:15 PM EST Office Visit Internal Medicine - [address] [phone] Kathy Prado MD Lumbar radiculopathy (Primary Dx); Calcific tendinitis of left shoulder; Primary hypertension; Mixed hyperlipidemia; Encounter for subsequent annual wellness visit (AWV) in Medicare patient 10/12/2025 Telephone Internal Medicine - [address] [phone] Kathy Prado MD from Last 3 Months Immunizations Immunization Administration Dates Next Due Influenza Quadravalent, 0.5ml [...] Smoking Tobacco: Every Day Smokeless Tobacco: Never Tobacco Cessation:Ready to Q uit: Not Asked; Counseling Given: Not Answered Alcohol Use Standard Drinks/Week Comments No 0 [...] care for your loved ones. For example, children's entertainer or elderly care for an older adult? [...] Sign Reading Time Taken Comments Blood Pressure 129/73 10/12/2025 1:28 PM EST Pulse 61 10/12/2025 1:28 PM EST Temperature 36.6 C (97.8 F) 10/12/2025 1:28 PM EST Respiratory Rate 18 10/12/2025 1:28 PM EST Oxygen Saturation 97% 10/12/2025 1:28 PM EST Inhaled Oxygen Concentration - - Weight 77.1 kg (170 lb) 10/12/2025 1:28 PM EST Height 177.8 cm (5' 10 ) 10/12/2025 1:28 PM EST Body Mass Index 24.39 10/12/2025 1:28 PM EST Plan of Treatment Upcoming Encounters Date Type Department Care Team (Late st Contact Info) Description 11/07/2025 10:30 AM EST Office Visit Pulmonology - [address] [phone] Nichole Gutierrez MD [address] [place] [phone] 02/13/2026 2:00 PM EDT Office Visit Internal Medicine - [address] [phone] Kathy Prado MD [address] [place] [phone] Health Maintenance Due Date Last Done Comments RSV Immunization Adult Patients (1 - Risk 50-74 years 1-dose series) 2001 Zoster Vaccines (1 of 2) 2001 Abdominal Aortic Aneurysm (AAA) Screen 03/16/2021 Hepatitis C Screening 03/16/2021 COVID-19 Vaccine ( season) 2025 11/14/2023, 11/28/2022, 11/28/2022, Additional history exists Influenza Vaccine (#1) 2025 , 09/26/2023, 09/23/2022, Additional history exists Social Influencers of Health Screening 11/02/2025 11/02/2024 Hypertension/CHF/CAD Annual BMP Blood Test 05/10/2026 05/10/2025, 11/03/2024, 11/13/2023 Falls Risk Assessment 10/12/2026 10/12/2025 , 11/09/2024, 11/07/2023, Additional history exists Medicare Annual Wellness Visit 10/12/2026 10/12/2025 Colorectal Cancer Screening: FIT-DNA (Cologuard) 06/15/2028 06/15/2025, 06/15/2025, 01/21/2022, Additional history exists Cholesterol Screening (Lipid Panel) 11/09/2029 11/09/2024, 11/13/2023, 11/13/2023 DTaP,Tdap,and Td Vaccines (3 - Td or Tdap) 05/09/2035 05/09/2025, 06/14/2014 Pneumococcal Vaccine: 50+ Years Completed 10/31/2017, 08/21/2016 Depression Screening Completed 10/12/2025, 11/07/20 23 HIB Vaccines Aged Out No [...] Patient-Stated? Author PT LTGs General No Jin Reynoso PT Note: Pt will report no dizziness/vertigo x1 week with full daily activity - met Pt will be independent with HEP - met Procedures Procedure Name Priority Date/Time Associated Diagnosis Comments LAB COLOGUARD COLON CANCER SCREEN Routine 06/15/2025 2:00 PM EDT Screening for colorectal cancer COMPREHENSIVE METABOLIC PANEL Routine 05/10/2025 1:50 PM [...] 2:00 PM EDT) COLOGUARD Negative Negative [facility] Comment: The Cologuard Plus (TM) test was performed on this specimen. NEGATIVE TEST RESULT. A negative (normal) Cologuard Plus result means the patient has a aqon-swek-dnvaepb chance of having colorectal cancer (CRC) or [...] a 91% specificity (Cologuard Plus Clinician Brochure. [employer]. [place], [place].). Visit [email or web address].Axiom/about/aqbdwctj-[email or web address] for more test information, references, warnings, and precautions. Stool 06/15/2025 2:00 PM EDT 06/16/2025 12:45 PM EDT us Kathy rPado MD LAB MOLECULAR DIAGNOSTICS [facility] ALEXIS Final Result [facility] [address] [place] [address] [address] [place] [address] * Comprehensive metabolic panel (05/10/2025 1:50 PM EDT) Sodium 137 133 - 145 mmol/L LAB CHEMISTRY METHOD 05/10/2025 7:51 PM [facility] Potassium 4.3 3.5 - 5.5 mmol/L LAB CHEMISTRY METHOD 05/10/2025 7:51 PM [facility] Chloride 105 96 - 110 mmol/L LAB CHEMISTRY METHOD 05/10/2025 7:51 PM [facility] CO2 27 21 - 32 mmol/L LAB CHEMISTRY METHOD 05/10/2025 7:51 PM [facility] Anion Gap 5 3 - 11 LAB CHEMISTRY METHOD 05/10/2025 7:51 PM [facility] Glucose 92 70 - 100 mg/dL LAB CHEMISTRY METHOD 05/10/2025 7:51 PM [facility] BUN 9 5 - 25 mg/dL LAB CHEMISTRY METHOD 05/10/2025 7:51 PM [facility] Creatinine 1.01 0.70 - 1.30 mg/dL LAB CHEMISTRY METHOD 05/10/2025 7:51 PM [facility] eGFR 79 >=60 mL/min/1. 73m2 LAB CHEMISTRY METHOD 05/10/2025 7:51 PM [facility] Comment:Calculation based on the Chronic Kidney Disease Epidemiology Collaboration (CKD-EPI) equation refit without adjustment for race. BUN/Creatinine Ratio 8.9 LAB CHEMISTRY METHOD 05/10/2025 7:51 PM [facility] Calcium 8.9 8.5 - 10.5 mg/dL LAB CHEMISTRY METHOD 05/10/2025 7:51 PM [facility] AST (SGOT) 29 10 - 42 unit/L LAB CHEMISTRY METHOD 05/10/2025 7:51 PM [facility] ALT (SGPT) 30 10 - 60 unit/L LAB CHEMISTRY METHOD 05/10/2025 7:51 PM [facility] Alkaline Phosphatase 79 42 - 121 unit/L LAB CHEMISTRY METHOD 05/10/2025 7:51 PM [facility] Total Protein 7.1 6.0 - 8.0 g/dL LAB CHEMISTRY METHOD 05/10/2025 7:51 PM [facility] Albumin 3.9 3.2 - 5.0 g/dL LAB CHEMISTRY METHOD 05/10/2025 7:51 PM [facility] Total Bilirubin 0.4 0.0 - 1.4 mg/dL LAB CHEMISTRY METHOD 05/10/2025 7:51 PM [facility] Blood Venous blood specimen / Unknown Venipuncture / Unknown 05/10/2025 1:50 PM EDT 05/10/2025 1:50 PM EDT us Kathy Prado MD LAB BLOOD ORDERABLES Final Res ult [facility] [address] [place] [address], [place] [phone] * Lipid panel with reflex to direct LDL (11/09/2024 1:28 PM EST) Cholesterol 194 0 - 200 mg/dL LAB CHEMISTRY METHOD 11/09/2024 7:44 PM EST [facility] Triglycerides 89 0 - 150 mg/dL LAB CHEMISTRY METHOD 11/09/2024 7:44 PM EST [facility] HDL 78 >=40 mg/dL LAB CHEMISTRY METHOD 11/09/2024 7:44 PM EST [facility] LDL Calculated 98 0 - 100 mg/dL LAB CHEMISTRY METHOD 11/09/2024 7:44 PM EST [facility] VLDL Cholesterol Markus 17.8 mg/dL LAB CHEMISTRY METHOD 11/09/2024 7:44 PM EST [facility] Non HDL Chol. (LDL+VLDL) 116 <145 mg/dL LAB CHEMISTRY METHOD 11/09/2024 7:44 PM EST [facility] Chol/HDL Ratio 2.5 0.0 - 4.4 LAB CHEMISTRY METHOD 11/09/2024 7:44 PM EST [facility] Blood Venous blood specimen / Unknown Venipuncture / Unknown 11/09/2024 1:28 PM EST 11/09/2024 1:28 PM EST us Kathy Prado MD LAB BLOOD ORDERABLES Final Res ult [facility] [address] [place] [address], [place] [phone] * Falls Risk Assessment (11/07/2023) Pathologist [facility] Falls Risk Assessment abstracted us Historical Provider HEALTH MAINTENANCE Final Result * Depression Screening (11/07/2023) Pathologist [facility] Depression Screening abstracted us Historical Provider HEALTH MAINTENANCE Final Result from Last 3 Months or Most Recently Relevant to Health Maintenance Insurance MEDICARE [facility] Care Teams Folder Machine Adjuster Relationship Specialty Start Date End Date Kathy Prado MD [address] [place] [address] [address] [place] [phone] PCP - General Internal Medicine 10/17/18
[2025-11-04 07:27] VITALS: PULSE 62; TEMP 36.5
--- NOTE | 2025-11-04 07:27 | A.PHYSOV_ITS ---
Vital Signs 11/04/25 07:27 Height 5 ft 10 in Pulse 62 Temp 97.7 F Intake Visit Reasons: Right Lumbar Interlaminar Epidural Injection L4-L5 Intake Note: Patient is a 74 year old male in office today for a left sacroiliac joint injection. Lymphedema Therapist Required: No Allergies No Known Allergies Allergy (Verified 11/04/25 07:28) [facility] Medical History Coarse tremors Tendinopathy of left rotator cuff Prediabetes IBS (irritable bowel syndrome) Insomnia Hypertension Hyperlipemia Erectile dysfunction Dyspnea Calcific tendinitis of left shoulder Aortic stenosis Anxiety Allergic rhinitis Surgical History History of cataract surgery (Unknown) History of hernia repair (Unknown) History of cholecystectomy (Unknown) Social History Household Members: Spouse Alcohol intake: current Alcohol intake frequency: does not drink Patient Tobacco Use Status: Current everyday Tobacco user Use of substances other than those prescribed or required for medical reasons: No Current occupational status: retired Physical Exam Vital Signs: Last Vital Signs Temp 97.7 F 11/04/25 07:27 Pulse 62 11/04/25 07:27 Office Procedures Procedure Details: Procedure performed: L4-L5 lumbar epidural steroid injection Preop diagnosis: Lumbar radiculitis Postop diagnosis: The same Anesthesia: Local After informed consent was obtained patient was brought into the procedure room and placed in the prone position on the procedure table. Skin over the lumbar sacral area was prepped and draped in usual sterile manner. L4-L5 interlaminar space was visualized utilizing fluoroscopy. After skin was anesthetized with 1% lidocaine solution, 3.5 in 20 gauge Toughy needle was introduced percutaneously and advanced toward the epidural space at the indicated level. Loss of resistance technique was utilized. Needle placement was verified utilizing 3 cc of Omnipaque contrast solution. Excellent epidural spread was visualized without evidence of vascular uptake. Total volume of 8 cc containing 2 cc of 1% lidocaine, 40 mg of triamcinolone and normal saline solution were injected after negative aspiration for blood and cerebrospinal fluid. Radiation exposure was documented in the chart. Lumbar Interlaminar Epidural 53464- use with FL Gd order: Lumbar Interlaminar Epidural Steroid Injection 08749 Procedure code (CPT) selection complete Office Meds Kenalog 40 mg/mL suspension for injection Performing Provider: Lewis Solis DO Performing Location[facility] Administered by: Lewis Solis DO on 11/04/25 07:47 Dose Route Admin Location Dispensed Lot Number Expiration Date [facility] Centrifug[employer] D[employer] 40 mg epidural 1 mL [address]-9 [employer] Total Dispensed Waste 1 mL 0 % lidocaine (PF) 10 mg/mL (1 %) injection solution Performing Provider: Lewis Solis DO Performing Location: [facility] Administered by: Lewis Solis DO on 11/04/25 07:47 Dose Route Admin Location Dispensed Lot Number Expiration Date [facility] Centrifug[employer] Drier Operator 50 mg epidural 5 mL [id number] [place] [employer] Total Dispensed Waste 5 mL 0 % Omnipaque 300 300 mg iodine/mL intravenous solution Performing Provider: Lewis Solis DO Performing [facility] Administered by: Lewis Solis DO on 11/04/25 07:47 Dose Route Admin Location Dispensed Lot Number Expiration Date [facility] Centrifugal Drier Operator 3 mL epidural 10 mL [id number] Rapid Pathogen Screening ARE Total Dispensed Waste 10 mL 70 % Assessment & Plan Assessment & Plan (1) Lumbar radiculitis: Code(s): M54.16 - Radiculopathy, lumbar region Category: Medical Plan: Procedure Orders: Orders FL Gd L Spine Interlaminar Inj Today M54.16 - Radiculopathy, lumbar region AMB Lumbar Interlaminar Epidural Steroid Injection Today M54.16 - Radiculop athy, lumbar region Coding Level of Care Code Procedure Only Diagnoses Lumbar radiculitis M54.16 CPT Codes Lumbar Interlaminar Epidural Steroid I - 91820 - Lumbar Interlaminar Epidural: Lumbar Interlaminar Epidural Steroid Injection 01168 ([id number])
== END 2025-11-04 08:10 | disposition home or self-care (01) ==
LOC: HO.HPHYS 07:19
PROVIDERS: PCP Internal Medicine; Visit Provider Physical Medicine & Rehabilitation
DX: M54.16 Radiculopathy, lumbar region (principal)
CPT/HCPCS: 62323

== ENCOUNTER 2025-11-04 07:19 | Outpatient (REF) | payer MEDICARE, BC, SELFPAY | END 2025-11-04 07:20 | disposition home or self-care (01) | LOC: HO.HPHYSR 07:19 | PROVIDERS: PCP Internal Medicine; Visit Provider Physical Medicine & Rehabilitation | DX: M54.16 Radiculopathy, lumbar region (principal) | CPT/HCPCS: 62323; J2003; J3301; Q9967 ==